=== PATIENT | male | born 1975 | race Caucasian/White ===

== ENCOUNTER → 2023-10-02 09:37 | Outpatient (REF) | payer BC, SELFPAY | LOC: HWRAD 09:37 | PROVIDERS: ATTENDING PHYSICIAN Internal Medicine Cardiovascular Disease; REFERRING PHYSICIAN Thoracic Surgery (Cardiothoracic Vascular Surgery) | DX: I35.9 Nonrheumatic aortic valve disorder, unspecified (principal) | CPT/HCPCS: 71275; Q9967 ==

== ENCOUNTER 2024-02-18 17:38 | Outpatient (RCR) | payer BC, SELFPAY | END 2024-02-18 23:59 | disposition home or self-care (01) | LOC: CRHB 17:38 | PROVIDERS: ATTENDING PHYSICIAN Internal Medicine Cardiovascular Disease | DX: Z95.4 Presence of other heart-valve replacement (principal) | CPT/HCPCS: 93798 ==

== ENCOUNTER 2024-03-19 17:50 | Outpatient (RCR) | payer BC, SELFPAY | END 2024-03-19 23:59 | disposition home or self-care (01) | LOC: CRHB 17:50 | PROVIDERS: ATTENDING PHYSICIAN Internal Medicine Cardiovascular Disease | DX: Z95.4 Presence of other heart-valve replacement (principal) | CPT/HCPCS: 93798 ==

== ENCOUNTER 2024-04-19 17:58 | Outpatient (RCR) | payer BC, SELFPAY | END 2024-04-19 23:59 | disposition home or self-care (01) | LOC: CRHB 17:58 | PROVIDERS: ATTENDING PHYSICIAN Internal Medicine Cardiovascular Disease | DX: Z95.4 Presence of other heart-valve replacement (principal) | CPT/HCPCS: 93798 ==

== ENCOUNTER 2024-04-28 17:50 | Outpatient (RCR) | payer BC, SELFPAY | END 2024-04-28 23:59 | disposition home or self-care (01) | LOC: CRHB 17:50 | PROVIDERS: ATTENDING PHYSICIAN Internal Medicine Cardiovascular Disease | DX: Z95.4 Presence of other heart-valve replacement (principal) | CPT/HCPCS: 93798 ==